=== PATIENT | female | born 1985 | race Two or more races ===

== ENCOUNTER 2019-11-15 15:25 | Emergency (ER) | payer MEDICAID ==
[~2019-11-15] VITALS: Ht 170.2 cm; Wt 104.3 kg
--- NOTE | 2019-11-15 15:45 | NUR ---
Patient discharged to home in stable conditon & brisk steady gait. Written and verbal after care instructions given to patient. Patient verbalizes understanding & compliance of instructions.
[2019-11-15 15:47] VITALS: BP 120/70
== END 2019-11-15 15:48 | disposition home or self-care (01) ==
LOC: ER 15:27
DX: J02.9 Acute pharyngitis, unspecified (principal)
CPT/HCPCS: A4663

== ENCOUNTER → 2021-12-26 | Emergency (ER) | payer BC, MEDICAID ==
[~2021-12-26] VITALS: Ht 170.2 cm; Wt 99.8 kg
[~2021-12-26] MED LIST: FEXO1TAB8 PO; FLUT16SP16 BNOSTRILS; NAPR-1164 PO; ONDANSETRON 4 MG/2 ML VIAL ONE; PSEU120T57 PO
== END | disposition home or self-care (01) ==
LOC: ER 14:24
DX: U07.1 COVID-19 (principal); H92.03 Otalgia, bilateral; J02.8 Acute pharyngitis due to other specified organisms; B97.89 Other viral agents as the cause of diseases classified elsewhere; Z79.899 Other long term (current) drug therapy
CPT/HCPCS: 99283; U0003; A4663